=== PATIENT | female | born 1965 | race Caucasian/White ===

== ENCOUNTER 2019-12-11 14:30 | Emergency (ER) | payer SELFPAY ==
[~2019-12-11] VITALS: Ht 175.3 cm; Wt 102.0 kg
--- NOTE | 2019-12-11 14:53 | PHYS DOC ---
General Adult EDM: Chief Complaint: SKIN PROBLEM HPI: HPI: 54-year-old female presents with concern for cellulitis. Patient has 2 areas in her right axilla that she has had for a couple of weeks. She states that they inflamed and then get a little bit better and then inflamed again. She has had some drainage from them. They are painful and she just wants them to go away. She has had skin infections in the past. She has several other areas on her arms where she admits to picking at them when she gets nervous. She denies picking at these wounds. She has not had any antibiotics. She denies fever chills. Review of Systems: Review of Systems: Constitutional: Denies fever or chills Eyes: Denies change in visual acuity HENT: Denies nasal congestion or sore throat Respiratory: Denies cough or shortness of breath Cardiovascular: Denies chest pain or edema GI: Denies abdominal pain, nausea, vomiting, bloody stools or diarrhea : Denies dysuria Musculoskeletal: Denies back pain or joint pain Integument: Cellulitis right axilla Neurologic: Denies headache, focal weakness or sensory changes Endocrine: Denies polyuria or polydipsia Lymphatic: Denies swollen glands Psychiatric: Denies depression or anxiety Heart Score: Risk Factors: Risk Factors: DM, Current or recent (<one month) smoker, HTN, HLP, family history of CAD, obesity. Risk Scores: Score 0 - 3: 2.5% MACE over next 6 weeks - Discharge Home Score 4 - 6: 20.3% MACE over next 6 weeks - Admit for Clinical Observation Score 7 - 10: 72.7% MACE over next 6 weeks - Early Invasive Strategies Allergies: Allergies: Allergies Coded Allergies Type Severity Reaction Last Updated Verified No Known Drug Allergies 12/11/19 No Physical Exam: PE: Constitutional: Well developed, well nourished, no acute distress, non-toxic appearance. [] HENT: Normocephalic, atraumatic, bilateral external ears normal, oropharynx moist, no oral exudates, nose normal. [] Eyes: PERRLA, EOMI, conjunctiva normal, no discharge. [] Neck: Normal range of motion, no tenderness, supple, no stridor. [] Cardiovascular:Heart rate regular rhythm, no murmur [] Lungs & Thorax: Bilateral breath sounds clear to auscultation [] Abdomen: Bowel sounds normal, soft, no tenderness, no masses, no pulsatile masses. [] Skin: Two 1 cm round, warm, erythematous areas in the right axilla. No palpable abscess or current drainage. Multiple sores in various stages of healing on her bilateral arms consistent with picking. [] Back: No tenderness, no CVA tenderness. [] Extremities: No tenderness, no cyanosis, no clubbing, ROM intact, no edema. [] Neurologic: Alert and oriented X 3, normal motor function, normal sensory function, no focal deficits noted. [] Psychologic: Affect normal, judgement normal, mood normal. [] EKG: EKG: [] Radiology/Procedures: Radiology/Procedures: [] Course & Med Decision Making: Course & Med Decision Making Pertinent Labs and Imaging studies reviewed. (See chart for details) The patient's wounds look pretty good. They are erythematous and warm to touch. I will treat her with Keflex for 7 days. I will also give her a short course of tramadol for her discomfort. She is stable for discharge at this time. [] Dragon Disclaimer: Dragon Disclaimer: This electronic medical record was generated, in whole or in part, using a voice recognition dictation system. Departure Departure: Impression: Primary Impression: Cellulitis of right axilla Disposition: 01 HOME/RESIDENCE PRIOR TO ADM Condition: STABLE Referrals: [facility]CP[facility] (PCP) Patient Instructions: Cellulitis, [id number] CASTILLO SIDHU DO December 11, 2019 14:53
[2019-12-11 15:02] VITALS: BP 126/81
== END 2019-12-11 15:20 | disposition home or self-care (01) ==
LOC: ER 14:30
DX: L03.111 Cellulitis of right axilla (principal)
CPT/HCPCS: 36415; 85730; 99283

== ENCOUNTER 2020-10-31 14:00 | Emergency (ER) | payer SELFPAY ==
[~2020-10-31] VITALS: Ht 177.8 cm; Wt 106.0 kg
[2020-10-31 14:12] VITALS: BP 111/79
[2020-10-31] MEDS ORDERED: ACYC400T PO ×2 (14:41→14:48)
[2020-10-31] MEDS ORDERED: SULF1TAB24 PO (14:41)
--- NOTE | 2020-10-31 14:42 | PHYS DOC ---
Past History Past Medical History: Anxiety (CRISELDA CHISHOLM APRN) Past Surgical History: No Surgical History (CRISELDA CHISHOLM APRN) Alcohol Use: None (CRISELDA CHISHOLM APRN) General Adult EDM: Chief Complaint: SKIN PROBLEM HPI: HPI: Patient is a 55-year-old female who presents with lesions to multiple skin sites. 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 Patient reports that sores are itchy and burning. Patient noticed facial sores 2 days ago. Patient also has sores to her right elbow and neck. Patient states "I also have a fever blister and I am out of acyclovir". Patient has history of hep C, anxiety and depression, COPD, chronic back pain. Patient is a daily smoker, denies drug or alcohol use. (CRISELDA CHISHOLM APRN) Review of Systems: Review of Systems: Constitutional: Denies fever or chills Eyes: Denies change in visual acuity HENT: Denies nasal congestion or sore throat Respiratory: Denies cough or shortness of breath Cardiovascular: Denies chest pain or edema GI: Denies abdominal pain, nausea, vomiting, bloody stools or diarrhea : Denies dysuria Musculoskeletal: Denies back pain or joint pain Integument: Reports sores to face, lower back Neurologic: Denies headache, focal weakness or sensory changes Endocrine: Denies polyuria or polydipsia Lymphatic: Denies swollen glands Psychiatric: Reports depression and anxiety (CRISELDA CHISHOLM APRN) Allergies: Allergies: Allergies Coded Allergies Type Severity Reaction Last Updated Verified No Known Drug Allergies 12/11/19 No (CRISELDA CHISHOLM APRN) Physical Exam: PE: Constitutional: Well developed, well nourished, no acute distress, non-toxic appearance. [] HENT: Normocephalic, atraumatic, bilateral external ears normal, oropharynx moist, no oral exudates, nose normal. [] Eyes: PERRLA, EOMI, conjunctiva normal, no discharge. [] Neck: Normal range of motion, no tenderness, supple, no stridor. [] Cardiovascular:Heart rate regular rhythm, no murmur [] Lungs & Thorax: Bilateral breath sounds clear to auscultation [] Abdomen: Bowel sounds normal, soft, no tenderness, no masses, no pulsatile masses. [] Skin: Warm, dry, red lesions Back: No tenderness, no CVA tenderness. [] Extremities: No tenderness, no cyanosis, no clubbing, ROM intact, no edema. [] Neurologic: Alert and oriented X 3, normal motor function, normal sensory function, no focal deficits noted. [] Psychologic: Affect normal, judgement normal, mood normal. [] (CRISELDA CHISHOLM APRN) Current Patient Data: Vital Signs: Vital Signs Date Time Temp Pulse Resp B/P (MAP) Pulse Ox O2 Delivery O2 Flow Rate FiO2 10/31/20 14:12 96.5 113 111/79 (90) 98 (CRISELDA CHISHOLM APRN) EKG: EKG: [] (CRISELDA CHISHOLM APRN) Radiology/Procedures: Radiology/Procedures: [] (CRISELDA CHISHOLM APRN) Heart Score: C/O Chest Pain: No Risk Factors: Risk Factors: DM, Current or recent (<one month) smoker, HTN, HLP, family history of CAD, obesity. Risk Scores: Score 0 - 3: 2.5% MACE over next 6 weeks - Discharge Home Score 4 - 6: 20.3% MACE over next 6 weeks - Admit for Clinical Observation Score 7 - 10: 72.7% MACE over next 6 weeks - Early Invasive Strategies (CRISELDA CHISHOLM APRN) Course & Med Decision Making: Course & Med Decision Making Pertinent Labs and Imaging studies reviewed. (See chart for details) [] Patient is being seen for multiple lesions to her face, arm and lower back. Patient states that she has a history of MRSA and has had these lesions in the past and been treated with antibiotics. Patient reports they are itchy and burning. Patient is also reporting that she has a breakout of herpes and is requesting acyclovir. Patient given a prescription for Bactrim and also acyclovir to treat herpes virus. Patient instructed to return emergency room with worsening symptoms or concerns. (CRISELDA CHISHOLM APRN) Dragon Disclaimer: Dragon Disclaimer: This electronic medical record was generated, in whole or in part, using a voice recognition dictation system. (CRISELDA CHISHOLM APRN) Attending Co-Sign The patient was seen and interviewed as well as examined at the bedside. The chart was reviewed. The case was discussed. Agree with the plan of care. (CASTILLO SIDHU DO) Departure Departure: Impression: Primary Impression: Skin lesion, infected Disposition: HOME / SELF CARE / HOMELESS Condition: STABLE Referrals: CHRISTOPHER MORGAN (PCP) Patient Instructions: Skin Infections Additional Instructions: EMERGENCY DEPARTMENT GENERAL DISCHARGE INSTRUCTIONS Thank you for coming to [facility] (ED) today and trusting us with you care. We trust that you had a positivie experience in our Emergency Department. If you wish to speak to the department management, you may call the director at [phone]. YOUR FOLLOW UP INSTRUCTIONS ARE FOLLOWS: 1. Do you have a private Doctor? If you do not have a private doctor, please ask for a resource list of physicians or clinics that may be able to assist you with follow up care. 2. The Emergency Physician has interpreted your x-rays. The X-Ray specialist w ill also review them. If there is a change in the findings, you will be notified in 48 hours when at all possible. 3. A lab test or culture has been done, your results will be reviewed and you will be notified if you need a change in treatment. ADDITIONAL INSTRUCTIONS AND INFORMATION: 1. Your care today has been supervised by a physician who is specially trained in emergency care. Many problems require more than one evaluation for a complete diagnosis and treatment. We recommend that you schedule your follow up appointment as recommended to ensure complete treatment of you illness or injury. If you are unable to obtain follow up care and continue to have a problem, or if your condition worsens, we recommend that you return to the ED. 2. We are not able to safely determine your condition over the phone nor are we able to give sound medical advice over the phone. For these safety reasons, if you call for medical advice we will ask you to come to the ED for further evaluation. 3. If you have any questions regarding these discharge instructions please call the ED at [phone]. SAFETY INFORMATION: In the interest of safety, wellness, and injury prevention; we encourage you to wear your sealbelt, if you smoke; quite smoking, and we encourage family to use a protective helmet for bicycling and other sporting events that present an increased risk for head injury. IF YOUR SYMPTOMS WORSEN OR NEW SYMPTOMS DEVELOP, OR YOU HAVE CONCERNS ABOUT YOUR CONDITION; OR IF YOUR CONDITION WORSENS WHILE YOU ARE WAITING FOR YOUR FOLLOW UP APPOINTMENT; EITHER CONTACT YOUR PRIMARY CARE DOCTOR, THE PHYSICIAN WHOSE NAME AND NUMBER YOU WERE GIVEN, OR RETURN TO THE ED IMMEDIATELY. Scripts Acyclovir (ACYCLOVIR) 400 Mg Tablet 1 TAB PO BID for herpes simplex virus for 3 Days, #6 TAB Prov: CRISELDA CHISHOLM APRN 10/31/20 Sulfamethoxazole/Trimethoprim (BACTRIM DS TABLET) 1 Each Tablet 1 EACH PO BID for infection for 7 Days, #14 TAB Prov: CRISELDA CHISHOLM APRN 10/31/20 CRISELDA CHISHOLM APRN Oct 31, 2020 14:42 CASTILLO SIDHU DO Nov 01, 2020 06:15
== END 2020-10-31 15:03 | disposition home or self-care (01) ==
LOC: ER 14:00
DX: L98.8 Other specified disorders of the skin and subcutaneous tissue (principal); Z86.14 Personal history of Methicillin resistant Staphylococcus aureus infection
CPT/HCPCS: 99283

== ENCOUNTER → 2020-11-21 | Outpatient (CLI) | payer OTHER ==
[2020-10-31 14:12] VITALS: BP 111/79
[~2020-11-21] MED LIST: ACYC-12 PO; SULF1TAB24 PO
--- NOTE | 2020-11-22 11:29 | RAD ---
DATE: November 21, 2020 EXAM: DIGITAL SCREEN BILAT W/CAD HISTORY: Screening study. History of saline breast implants. COMPARISON: 2014 This study was interpreted with the benefit of Computerized Aided Detection (CAD). FINDINGS: Breast Density: FATTY The breast parenchyma is primarily fatty replaced. Breast parenchyma level density A.. There are no dominant suspicious masses, suspicious microcalcifications or evidence of architectural distortion. IMPRESSION: No mammographic indicators for malignancy. The saline breast implant on the right side is collapsed consistent with rupture. This is new since 2014. BI-RADS CATEGORY: 2 BENIGN FINDING RECOMMENDED FOLLOW-UP: 12M 12 MONTH FOLLOW-UP PQRS compliance statement: Patient information was entered into a reminder system with a target due date November 22, 2021 for the next mammogram. Mammography is a sensitive method for finding small breast cancers, but it does not detect them all and is not a substitute for careful clinical examination. A negative mammogram does not negate a clinically suspicious finding and should not result in delay in biopsying a clinically suspicious abnormality. "Our facility is accredited by the [employer] Mammography Program." The patient's breast density may affect the ability of mammography to detect breast cancer. There are 4 categories of breast density, A, B, C and D. Breast density A means that most of the breast tissue is replaced with adipose tissue and therefore is not dense. Breast density B means that the breast tissue is mildly dense and scattered. Breast density C means that the breast tissue is heterogeneously dense. Breast density D means that the breast tissue is very dense. Breast densities especially C and D may decrease the sensitivity of mammography to detect breast cancer. Therefore, the patient may benefit from 3-D breast mammography (3D breast tomography) as a part of their screening mammogram. Insurance may or may not pay for this additional imaging. The patient's breast density based on today's mammogram is category A.
== END ==
LOC: MAMMO 09:45
PROVIDERS: ATTEND Nurse Practitioner Family
DX: Z12.31 Encounter for screening mammogram for malignant neoplasm of breast (principal)
CPT/HCPCS: 77067